=== PATIENT | female | born 1975 | race Caucasian/White ===

== ENCOUNTER 2021-05-31 01:18 | Observation (INO) ==
[2021-05-31 02:25] LABS: Influenza A PCR Negative (Negative); Influenza B PCR Negative (Negative); Resp. Syncytial Virus PCR Negative (Negative)
[2021-05-31 02:53] LABS: SARS-CoV-2 by PCR (In House) Positive (Negative)
[2021-05-31] MEDS ORDERED: Potassium Chloride Elixir 20 MEQ/15 ML UDC PO ONE ×2 (11:00→15:15)
[2021-05-31] MEDS ORDERED: Ondansetron ODT 4 MG TAB.RAPDIS SL PRN (11:10)
[2021-05-31] MEDS ORDERED: Naloxone 0.4 MG/ML INJ IVP PRN (11:10)
[2021-05-31] MEDS ORDERED: Mag Hydrox/Al Hydrox/Simeth 30 ML UDC PO PRN (11:10)
[2021-05-31] MEDS ORDERED: Melatonin 3 MG TABLET PO PRN (11:10)
[2021-05-31] MEDS ORDERED: Haloperidol Lactate 5 MG/ML VIAL IVP PRN (11:12)
[2021-05-31 12:22] LABS: Hematocrit 43.9 % (35.3-44.9); Hemoglobin 14.7 g/dL (11.5-15.4); Mean Corpuscular HGB Conc 33.5 g/dL (31.6-35.5); Mean Corpuscular Hemoglobin 31.3 pg (28.0-33.3); Mean Corpuscular Volume 93.6 fL (83.0-100.0); Mean Platelet Volume 12.7 fL (9.4-12.4); Platelet Count 128 K/mcL (140-400); Red Blood Count 4.69 M/mcL (3.82-4.97); Red Cell Distribution Width 12.8 % (11.5-14.5); White Blood Count 6.4 K/mcL (4.3-11.1)
[2021-05-31 12:40] LABS: BUN/Creatinine Ratio 11 (6-26); Blood Urea Nitrogen 7 mg/dL (6-20); Calcium 8.7 mg/dL (8.6-10.3); Carbon Dioxide 30 mEq/L (23-29); Chloride 100 mEq/L (98-107); Glucose 88 mg/dL (70-105); Osmolality,Calculated 281 (280-300); Potassium 3.3 mEq/L (3.5-5.1); Sodium 137 mEq/L (136-145); eGFR For African Americans > 60 (> 60); eGFR For Non-African Americans > 60 (> 60)
[2021-06-01 04:11] LABS: Hematocrit 41.9 % (35.3-44.9); Hemoglobin 13.8 g/dL (11.5-15.4); Mean Corpuscular HGB Conc 32.9 g/dL (31.6-35.5); Mean Corpuscular Hemoglobin 31.2 pg (28.0-33.3); Mean Corpuscular Volume 94.6 fL (83.0-100.0); Mean Platelet Volume 12.8 fL (9.4-12.4); Platelet Count 132 K/mcL (140-400); Red Blood Count 4.43 M/mcL (3.82-4.97); Red Cell Distribution Width 12.8 % (11.5-14.5); White Blood Count 5.2 K/mcL (4.3-11.1)
[2021-06-01 04:35] LABS: BUN/Creatinine Ratio 13 (6-26); Blood Urea Nitrogen 8 mg/dL (6-20); Calcium 8.4 mg/dL (8.6-10.3); Carbon Dioxide 28 mEq/L (23-29); Chloride 99 mEq/L (98-107); Glucose 108 mg/dL (70-105); Osmolality,Calculated 277 (280-300); Potassium 3.5 mEq/L (3.5-5.1); Sodium 134 mEq/L (136-145); eGFR For African Americans > 60 (> 60); eGFR For Non-African Americans > 60 (> 60)
[2021-06-01] MEDS: *HR* Enoxaparin 40 MG/0.4 ML SYRINGE SQ SCH (05:09)
[2021-06-01] MEDS: Nicotine 21 MG PATCH.TD24 TD SCH (05:09)
[2021-06-01 11:47] LABS: Amphetamine Screen,Urine Negative ng/mL (Cutoff=1000); Barbiturate Screen,Urine Negative ng/mL (Cutoff=200); Benzodiazepines Screen,Urine Negative ng/mL (Cutoff=200); Cannabinoid Screen,Urine Positive ng/mL (Cutoff = 50); Cocaine Screen,Urine Negative ng/mL (Cutoff= 300); Opiate Screen,Urine Negative ng/mL (Cutoff=300); Phencyclidine Screen,Urine Negative ng/mL (Cutoff=25)
[2021-06-02] MEDS: OLANZapine 5 MG TAB.RAPDIS PO SCH ×2 (00:52→19:58)
[2021-06-02] MEDS: *HR* Enoxaparin 40 MG/0.4 ML SYRINGE SQ SCH (05:37)
[2021-06-02] MEDS: Nicotine 21 MG PATCH.TD24 TD SCH (09:00)
[2021-06-03 02:52] VITALS: O2SAT 99
[2021-06-03] MEDS: *HR* Enoxaparin 40 MG/0.4 ML SYRINGE SQ SCH (05:51)
[2021-06-03 06:42] VITALS: BP 139/93; PULSE 105; TEMP 97.9
[2021-06-03] MEDS: Nicotine 21 MG PATCH.TD24 TD SCH (10:08)
== END 2021-06-03 17:37 | disposition home or self-care (01) ==
LOC: SUATTDRO → EMEROOARM 01:18 → INTOOBSV 13:58 → SUATTDRO 13:58 → 3BNU 13:58
PROVIDERS: ADMIT Family Medicine; ATTEND Internal Medicine

== ENCOUNTER 2021-12-24 15:00 | Inpatient (IN) ==
[2021-12-24] MEDS ORDERED: *HR* LORazepam 1 MG TABLET PO PRN (17:19)
[2021-12-24] MEDS ORDERED: haloperidoL 5 MG TABLET PO PRN (17:19)
[2021-12-24] MEDS ORDERED: *HR* LORazepam 2 MG/ML VIAL IM PRN (17:19)
[2021-12-24] MEDS ORDERED: Haloperidol Lactate 5 MG/ML VIAL IM PRN (17:19)
[2021-12-24] MEDS: hydrOXYzine pamoate 25 MG CAPSULE PO PRN (21:18)
[2021-12-24] MEDS: OLANZapine 5 MG TAB.RAPDIS PO SCH (21:18)
[2021-12-24] MEDS: QUEtiapine Fumarate 25 MG TABLET PO PRN (21:18)
[2021-12-25] MEDS ORDERED: Nicotine 2 MG GUM BC PRN (13:08)
[2021-12-25] MEDS: Nicotine 21 MG PATCH.TD24 TD SCH (14:46)
[2021-12-25] MEDS: OLANZapine 5 MG TAB.RAPDIS PO SCH (20:39)
[2021-12-25] MEDS: hydrOXYzine pamoate 25 MG CAPSULE PO PRN (22:27)
[2021-12-25] MEDS: QUEtiapine Fumarate 25 MG TABLET PO PRN (22:27)
[2021-12-26] MEDS: Acetaminophen 325 MG TABLET PO PRN ×2 (00:36→20:37)
[2021-12-26] MEDS: Nicotine 21 MG PATCH.TD24 TD SCH (09:59)
[2021-12-26] MEDS: FLUoxetine HCl 10 MG CAPSULE PO SCH (09:59)
[2021-12-26] MEDS: hydrOXYzine pamoate 25 MG CAPSULE PO PRN ×2 (14:34→20:36)
[2021-12-26] MEDS ORDERED: OLANZapine 10 MG TAB.RAPDIS PO ONE (18:40)
[2021-12-26] MEDS: OLANZapine 5 MG TAB.RAPDIS PO SCH (20:36)
[2021-12-26] MEDS: QUEtiapine Fumarate 25 MG TABLET PO PRN (20:36)
[2021-12-27] MEDS: Acetaminophen 325 MG TABLET PO PRN ×2 (08:35→16:15)
[2021-12-27] MEDS: Nicotine 21 MG PATCH.TD24 TD SCH (08:36)
[2021-12-27] MEDS: FLUoxetine HCl 10 MG CAPSULE PO SCH (08:36)
[2021-12-27] MEDS: hydroCHLOROthiazide 25 MG TABLET PO SCH (10:00)
[2021-12-27] MEDS ORDERED: OLANZapine 5 MG TAB.RAPDIS PO SCH (21:00)
[2021-12-27] MEDS: QUEtiapine Fumarate 25 MG TABLET PO PRN (21:03)
[2021-12-27] MEDS: hydrOXYzine pamoate 25 MG CAPSULE PO PRN (21:04)
[2021-12-27 21:39] VITALS: O2SAT 99
[2021-12-28] MEDS: QUEtiapine Fumarate 25 MG TABLET PO PRN (00:09)
[2021-12-28] MEDS: Acetaminophen 325 MG TABLET PO PRN ×2 (00:10→09:10)
[2021-12-28] MEDS: hydrOXYzine pamoate 25 MG CAPSULE PO PRN ×2 (00:10→16:01)
[2021-12-28] MEDS: Nicotine 21 MG PATCH.TD24 TD SCH (09:03)
[2021-12-28] MEDS: FLUoxetine HCl 10 MG CAPSULE PO SCH (09:04)
[2021-12-28] MEDS: hydroCHLOROthiazide 25 MG TABLET PO SCH (09:04)
[2021-12-28 10:26] VITALS: BP 134/86; PULSE 102; TEMP 97.8
== END 2021-12-28 18:10 | disposition home or self-care (01) | DRG 750 ==
LOC: EMEROOARM 15:00 → 1ANU 17:18 → INTOOBSV 17:18 → 1ANU 18:38
PROVIDERS: ADMIT Psychiatry & Neurology Psychiatry; ATTEND Psychiatry & Neurology Psychiatry